=== PATIENT | male | born 1995 | race Caucasian/White ===

== ENCOUNTER 2024-11-24 06:30 | Emergency (ER) | payer SELFPAY ==
[~2024-11-24] VITALS: Ht 177.8 cm; Wt 78.0 kg
[2024-11-24 06:40] VITALS: O2SAT 100
[2024-11-24 08:18] LABS: CHLORIDE 110 mEq/L (98-107); POTASSIUM 3.2 mEq/L (3.5-5.1); SODIUM 146 mEq/L (136-145)
[2024-11-24 08:19] LABS: CALCIUM 8.7 mg/dL (8.7-10.4); CARBON DIOXIDE 23 mEq/L (21-32)
[2024-11-24 08:23] LABS: BASOPHILS % 0.7 % (0.0-2.0); EOSINOPHILS % 0.6 % (0.0-5.0); HEMATOCRIT. 40.5 % (42.0-52.0); HEMOGLOBIN. 13.3 g/dL (14.0-18.0); LYMPHOCYTES % 47.1 % (20.0-50.0); MEAN CORPUSCULAR HEMOGLOBIN 30.8 pg (28.0-32.0); MEAN CORPUSCULAR HGB CONC 32.8 g/dL (31.0-37.0); MEAN CORPUSCULAR VOLUME 93.8 fL (80.0-94.0); MEAN PLATELET VOLUME 8.4 fl (7.4-10.4); MONOCYTES % 5.4 % (2.0-8.0); NEUTROPHILS % 46.2 % (40.0-76.0); PLATELET 269 x1000/uL (130-400); RED BLOOD CELL COUNT 4.32 mill/uL (4.7-6.1); RED CELL DISTRIBUTION WIDTH 13.6 % (11.6-14.6)
[2024-11-24 08:24] LABS: CREATININE 0.7 mg/dL (0.6-1.3); GLUCOSE 82 mg/dL (70-105); UREA NITROGEN BLOOD 11 mg/dL (9-23)
[2024-11-24 08:25] LABS: ETHANOL BLOOD 249 mg/dL (<10)
[2024-11-24] MEDS: LORAZEPAM 2MG/ML INJ IM ONE (08:28)
[2024-11-24] MEDS: OLANZAPINE 10 MG/VIAL IM ONE (08:28)
[2024-11-24 22:49] LABS: CLARITY URINE CLEAR (CLEAR); COLOR URINE DARK YELLOW (YELLOW); GLUCOSE URINE NEGATIVE (NEGATIVE); KETONES URINE 1+ (NEGATIVE); LEUKOCYTE ESTERASE URINE TRACE (NEGATIVE); NITRITE URINE NEGATIVE (NEGATIVE); OCCULT BLOOD URINE NEGATIVE (NEGATIVE); PROTEIN URINE TRACE (NEGATIVE); SPECIFIC GRAVITY URINE 1.028 (1.005-1.030)
[2024-11-24 23:03] LABS: BACTERIA URINE NONE SEEN; RBC URINE NONE SEEN /hpf (0-2); SQUAMOUS EPITHELIAL CELL URINE RARE /lpf (RARE/1+); WBC URINE 0-2 /hpf (0-2)
[2024-11-24 23:13] LABS: *AMPHETAMINES SCREEN URINE NEGATIVE (NEGATIVE); *BARBITURATES SCREEN URINE NEGATIVE (NEGATIVE); *BENZODIAZEPINES SCREEN URINE NEGATIVE (NEGATIVE); *COCAINE SCREEN URINE PRESUMPTIVE POSITIVE (NEGATIVE); CANNABINOID URINE SCREEN NEGATIVE (NEGATIVE); ECSTASY MDMA SCREEN URINE NEGATIVE (NEGATIVE); METHADONE URINE SCREEN NEGATIVE (NEGATIVE); OPIATES URINE SCREEN NEGATIVE (NEGATIVE); PHENCYCLIDINE URINE SCREEN NEGATIVE (NEGATIVE)
[2024-11-25] MEDS: OLANZAPINE 5MG TABLET ODT PO SCH (09:38)
[2024-11-25] MEDS: POTASSIUM CHLORIDE 20MEQ TABLET SR PO ONE (15:25)
[2024-11-25 20:00] VITALS: BP 111/71; PULSE 82; RESP 16; TEMP 37.05852; O2SAT 100
== END 2024-11-25 20:26 ==
LOC: ER 06:40
DX: R45.851 Suicidal ideations (principal); F31.9 Bipolar disorder, unspecified; Z59.00 Homelessness unspecified; Z20.822 Contact with and (suspected) exposure to COVID-19
CPT/HCPCS: 80305; 80048; 81003; 80320; 85025; 36415; 96372; 99285; 87426; J3490; J2060; Z7610 ×2; G0480

== ENCOUNTER 2025-04-06 13:38 | Emergency (ER) | payer OTHER ==
[~2025-04-06] VITALS: Ht 175.3 cm; Wt 100.0 kg
[2025-04-06 13:48] VITALS: O2SAT 100
[2025-04-06] MEDS: LORAZEPAM 1MG TABLET PO ONE (14:44)
[2025-04-06 14:55] LABS: BASOPHILS % 0.5 % (0.0-2.0); EOSINOPHILS % 0.3 % (0.0-5.0); HEMATOCRIT. 44.6 % (42.0-52.0); HEMOGLOBIN. 14.4 g/dL (14.0-18.0); LYMPHOCYTES % 26.7 % (20.0-50.0); MEAN CORPUSCULAR HEMOGLOBIN 29.5 pg (28.0-32.0); MEAN CORPUSCULAR HGB CONC 32.3 g/dL (31.0-37.0); MEAN CORPUSCULAR VOLUME 91.3 fL (80.0-94.0); MEAN PLATELET VOLUME 8.2 fl (7.4-10.4); NEUTROPHILS % 69.5 % (40.0-76.0); PLATELET 387 x1000/uL (130-400); RED BLOOD CELL COUNT 4.89 mill/uL (4.7-6.1)
[2025-04-06 15:03] LABS: CHLORIDE 111 mEq/L (98-107); POTASSIUM 3.5 mEq/L (3.5-5.1); SODIUM 147 mEq/L (136-145)
[2025-04-06 15:04] LABS: CALCIUM 8.6 mg/dL (8.7-10.4); CARBON DIOXIDE 24 mEq/L (21-32)
[2025-04-06 15:09] LABS: GLUCOSE 105 mg/dL (70-105); UREA NITROGEN BLOOD 13 mg/dL (9-23)
[2025-04-06 15:11] LABS: ACETAMINOPHEN < 2 ug/mL (10-30)
[2025-04-06 15:19] LABS: ETHANOL BLOOD 347 mg/dL (<10)
[2025-04-06 15:30] LABS: CLARITY URINE CLEAR (CLEAR); COLOR URINE DARK YELLOW (YELLOW); GLUCOSE URINE NEGATIVE (NEGATIVE); KETONES URINE TRACE (NEGATIVE); LEUKOCYTE ESTERASE URINE NEGATIVE (NEGATIVE); NITRITE URINE NEGATIVE (NEGATIVE); OCCULT BLOOD URINE NEGATIVE (NEGATIVE); PH URINE 5.5 (4.5-8.0); PROTEIN URINE 2+ (NEGATIVE)
[2025-04-06 15:46] LABS: *AMPHETAMINES SCREEN URINE NEGATIVE (NEGATIVE); WBC URINE 0-2 /hpf (0-2)
[2025-04-06 15:47] LABS: *BARBITURATES SCREEN URINE NEGATIVE (NEGATIVE); *BENZODIAZEPINES SCREEN URINE NEGATIVE (NEGATIVE); *COCAINE SCREEN URINE NEGATIVE (NEGATIVE); BACTERIA URINE 1+; CANNABINOID URINE SCREEN PRESUMPTIVE POSITIVE (NEGATIVE); ECSTASY MDMA SCREEN URINE NEGATIVE (NEGATIVE); METHADONE URINE SCREEN NEGATIVE (NEGATIVE); OPIATES URINE SCREEN NEGATIVE (NEGATIVE); PHENCYCLIDINE URINE SCREEN NEGATIVE (NEGATIVE); RBC URINE NONE SEEN /hpf (0-2); SQUAMOUS EPITHELIAL CELL URINE FEW /lpf (RARE/1+)
[2025-04-06] MEDS: DIPHENHYDRAMINE 50MG/ML VIAL IM PRN (22:27)
[2025-04-07 11:04] VITALS: BP 115/70; PULSE 74; RESP 14; TEMP 36.8; O2SAT 100
== END 2025-04-07 11:24 ==
LOC: ER 13:38
DX: R45.851 Suicidal ideations (principal); F10.129 Alcohol abuse with intoxication, unspecified; F41.9 Anxiety disorder, unspecified; F31.9 Bipolar disorder, unspecified; F19.90 Other psychoactive substance use, unspecified, uncomplicated; F20.9 Schizophrenia, unspecified; Z20.822 Contact with and (suspected) exposure to COVID-19; Y90.8 Blood alcohol level of 240 mg/100 ml or more
CPT/HCPCS: 80305; 80048; 81003; 80307; 80329; 80320; 83690; 85025; 36415; 96372; 99285; 82693; 87426; J1200; G0480